=== PATIENT | male | born 1970 | race Two or more races ===

== ENCOUNTER 2023-10-17 05:58 | Day surgery (SDC) | payer OTHER ==
[~2023-10-17 05:58] MED LIST: SIMVAST PO; VASOTEC20 M1 PO
== END 2023-10-17 17:50 | disposition home or self-care (01) ==
LOC: CIR.AMB 05:58
PROVIDERS: ATTEND Specialist
DX: K40.90 Unilateral inguinal hernia, without obstruction or gangrene, not specified as recurrent (principal); I10 Essential (primary) hypertension; E78.5 Hyperlipidemia, unspecified; Z20.822 Contact with and (suspected) exposure to COVID-19
CPT/HCPCS: 49505; C1781